=== PATIENT | female | born 1990 | race Caucasian/White ===

== ENCOUNTER → 2023-06-03 | Outpatient (CLI) | payer OTHER ==
[2023-06-03 11:37] LABS: HEMATOCRIT 40.9 % (36.0-47.0); HEMOGLOBIN 13.2 g/dl (12.0-15.5); MEAN CORPUSCULAR HGB CONC 32.3 g/dl (32.0-36.5); MEAN CORPUSCULAR VOLUME 86.7 fl (80.0-96.0); PLATELET COUNT, AUTOMATED 274 10^3/uL (150-450); RED BLOOD COUNT 4.72 10^6/uL (4.00-5.40)
[2023-06-03 12:00] LABS: BLOOD UREA NITROGEN 16 MG/DL (9-23); CALCIUM LEVEL 8.9 MG/DL (8.5-10.1); CARBON DIOXIDE LEVEL 29 MMOL/L (20-31); CHLORIDE LEVEL 108 MMOL/L (98-107); CREATININE FOR GFR 0.74 MG/DL (0.55-1.30); GLOMERULAR FILTRATION RATE > 60.0 (>60); GLUCOSE, FASTING 85 MG/DL (60-100); POTASSIUM SERUM 4.3 MMOL/L (3.5-5.1); SODIUM LEVEL 142 MMOL/L (136-145)
== END ==
LOC: M LAB 10:17
PROVIDERS: ATTEND Plastic Surgery Surgery of the Hand
DX: N62 Hypertrophy of breast (principal)

== ENCOUNTER 2023-06-16 10:15 | Observation (INO) | payer OTHER ==
[~2023-06-16] VITALS: Ht 180.3 cm; Wt 103.9 kg
[~2023-06-16 10:15] MED LIST: ACET1TAB55 PO; ALEV220T22 PO; CLINDAMYCIN 900 MG in IV 1 EA IV ONE; HEPARIN SOD (PORCINE) 5000UNITS/ML 1ML VIAL/SYRINGE SQ ONE
[2023-06-16] MEDS ORDERED: LR 1,000 ML IV SCH (10:40)
[2023-06-16] MEDS ORDERED: GENTAMICIN SULF 80MG/2ML VIAL As Ordered ONE (12:02)
[2023-06-16] MEDS ORDERED: MIDAZOLAM INJ 2MG/2ML VIAL As Ordered ONE (12:29)
[2023-06-16] MEDS ORDERED: propofoL 200 MG/20 ML VIAL As Ordered ONE (12:29)
[2023-06-16] MEDS ORDERED: ROCURONIUM BROMIDE 50MG/5ML VIAL As Ordered ONE ×3 (12:29→16:31)
[2023-06-16] MEDS ORDERED: METOCLOPRAMIDE INJ 10MG/2ML VIAL As Ordered ONE (12:29)
[2023-06-16] MEDS ORDERED: LIDOCAINE 2% 100MG/5ML SDV (FOR ANES.) As Ordered ONE (12:29)
[2023-06-16] MEDS ORDERED: fentaNYL 250 MCG/5 ML INJECTION As Ordered ONE (12:29)
[2023-06-16] MEDS ORDERED: ONDANSETRON 4MG 2ML VIAL As Ordered ONE (12:29)
[2023-06-16] MEDS ORDERED: SUGAMMADEX SODIUM 500 MG/5 ML VIAL (BRIDION) As Ordered ONE (12:29)
[2023-06-16] MEDS ORDERED: ACETAMINOPHEN 1000MG 100ML IV BAG As Ordered ONE (14:01)
[2023-06-16] MEDS ORDERED: HYDROmorphone HCL 2MG/ML 1ML VIAL As Ordered ONE (15:47)
[2023-06-16] MEDS ORDERED: fentaNYL 100 MCG/2 ML INJECTION IV PRN (18:10)
[2023-06-16] MEDS ORDERED: MORPHINE 2 MG/ML 1ML VIAL IV PRN (18:10)
[2023-06-16] MEDS ORDERED: oxyCODONE 5MG TAB PO PRN (18:10)
[2023-06-16] MEDS ORDERED: PERCOCET 5MG/325MG TAB PO PRN (18:10)
[2023-06-16] MEDS ORDERED: ONDANSETRON 4MG 2ML VIAL IV PRN ×2 (18:10)
[2023-06-16] MEDS ORDERED: traMADol 50 MG TAB PO PRN (18:10)
[2023-06-16] MEDS: LR 1,000 ML IV SCH (18:56)
[2023-06-16 18:57] VITALS: BP 131/70; TEMP 97.9; O2SAT 99
[2023-06-16 19:30] VITALS: TEMP 97.7; O2SAT 100
[2023-06-16] MEDS ORDERED: HOME MED LIST COMPLETE! XX SCH (20:00)
[2023-06-16 20:30] VITALS: BP 127/68; TEMP 97; O2SAT 99
[2023-06-16 21:30] VITALS: BP 143/75; TEMP 98.2; O2SAT 97
[2023-06-16 22:30] VITALS: BP 123/74; TEMP 97.3; O2SAT 95
[2023-06-16 23:30] VITALS: BP 128/65; TEMP 97.9; O2SAT 93
[2023-06-17] MEDS: ACETAMINOPHEN TAB 650MG DOSE (2X325MG) PO PRN ×2 (01:54→07:52)
[2023-06-17 02:00] VITALS: BP 136/72; TEMP 97.5; O2SAT 97
[2023-06-17 06:00] VITALS: BP 126/65; TEMP 97.7; O2SAT 97
[2023-06-17] MEDS: LR 1,000 ML IV SCH (07:30)
== END 2023-06-17 11:00 | disposition home or self-care (01) ==
LOC: M SDC 10:15 → M RR INP 18:10 → M MS5PR 18:50
PROVIDERS: ADMIT Plastic Surgery Surgery of the Hand; ATTEND Plastic Surgery Surgery of the Hand
DX: N62 Hypertrophy of breast (principal); M54.6 Pain in thoracic spine; M54.2 Cervicalgia; Z88.0 Allergy status to penicillin
CPT/HCPCS: 19318; 81025; 87635; 88305; C9290; J0131; J0665; J0737; J1100; J1170; J1580; J2250; J2405; J2765; J3010